=== PATIENT | female | born 1995 | race Caucasian/White ===

== ENCOUNTER 2018-10-21 21:17 | Emergency (ER) | payer OTHER ==
[2018-10-21 21:47] VITALS: BP 118/72; PULSE 96; TEMP 98.2; BMI 27.4
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
[2018-10-21 22:56] LABS: BASO % 0.4 % (0-2.0); EOS % 0.4 % (0-4.5); HEMATOCRIT 35.7 % (32.4-45.2); HEMOGLOBIN 12.6 GM/dL (10.7-15.3); LYMPH % 22.1 % (8-40); MCH 31.7 pg (25.7-33.7); MCHC 35.2 g/dl (32.0-36.0); MEAN CELL VOLUME 90.1 fl (80-96); MEAN PLT VOLUME 9.2 fl (7.5-11.1); MONO % 5.2 % (3.8-10.2); NEUT % 71.9 % (42.8-82.8); PLATELET COUNT 266 K/MM3 (134-434); RBC 3.97 M/mm3 (3.60-5.2); RDW 13.3 % (11.6-15.6); WHITE BLOOD COUNT 9.6 K/mm3 (4.0-10.0)
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
[2018-10-21 23:08] LABS: URINE APPEARANCE CLEAR; URINE BILIRUBIN NEGATIVE (<2.0 mg/dL); URINE COLOR LTYELLOW; URINE GLUCOSE (UA) NEGATIVE (NEGATIVE); URINE KETONE TRACE (NEGATIVE); URINE LEUK ESTERASE TRACE (NEGATIVE); URINE NITRITE NEGATIVE (NEGATIVE); URINE PROTEIN NEGATIVE (NEGATIVE); URINE UROBILINOGEN NEGATIVE mg/dL (0.2-1.0)
[2018-10-21 23:11] LABS: EPI CELLS RARE /HPF (FEW); URINE MUCUS RARE
[2018-10-21 23:43] LABS: ALK PHOS 68 U/L (45-117); ANION GAP 10 MMOL/L (8-16); BILIRUBIN,TOTAL 0.3 mg/dL (0.2-1); BLOOD UREA NITROGEN 10 mg/dL (7-18); CALCIUM 8.5 mg/dL (8.5-10.1); CHLORIDE 105 mmol/L (98-107); CO2 21 mmol/L (21-32); CREATININE 0.7 mg/dL (0.55-1.3); GLUCOSE,RANDOM 88 mg/dL (74-106); POTASSIUM 3.7 mmol/L (3.5-5.1); SGOT/AST 10 U/L (15-37); SGPT/ALT 16 U/L (13-61); SODIUM 136 mmol/L (136-145); TOT PROT 7.8 g/dl (6.4-8.2)
== END 2018-10-22 02:07 | disposition home or self-care (01) ==
LOC: JER 21:17
DX: O26.891 Other specified pregnancy related conditions, first trimester (principal); R10.30 Lower abdominal pain, unspecified; Z3A.01 Less than 8 weeks gestation of pregnancy; V44.6XXA Car passenger injured in collision with heavy transport vehicle or bus in traffic accident, initial encounter; Y92.488 Other paved roadways as the place of occurrence of the external cause; Y93.89 Activity, other specified; Y99.8 Other external cause status
CPT/HCPCS: 36415; 76830-TC; 80053; 81003; 81015; 84702; 85025; 87086; 99282-25

== ENCOUNTER 2019-06-19 07:36 | Inpatient (IN) | payer OTHER ==
[2019-06-19] MEDS ORDERED: ELECTROLYTE-148 SOLN 500 ML IV ONE (08:03)
[2019-06-19] MEDS ORDERED: CITRIC ACID/SODIUM CITRATE 30 ML UNIT-DOSE CUP PO ONE (08:03)
--- NOTE | 2019-06-19 08:17 | HP ---
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: Alzheimer's, CVA, Dementia, Migraine, Multiple Sclerosis, Peripheral Neuropathy, Parkinson's, Seizure, Syncope, TIA, Vertigo, Other Cardiovascular: No: AFIB, Aneurysm, Aortic Insufficiency, Aortic Stenosis, CAD, CHF, Deep Vein Thrombosis, HTN, Hyperlipdemia, NV, Mitral Insufficiency, Mitral Stenosis, Murmur, Pulmonary Hypertension, Other Pulmonary: No: Asthma, Bronchitis, Cancer, COPD, O2 Dependent, Pneumonia, Previously Intubated, Pulmonary Embolus, Pulmonary Fibrosis, Sleep Apnea, Other Gastrointestinal: No: Ascites, Cancer, Constipation, Crohn's Disease, Diverticulitis, Diverticulosis, Esophageal Varices, Gastritis, GERD, GI Bleed, Hemorrhoids, Hiatal Hernia, Inflamatory Bowel Disease, Irritable Bowel Disease, Pancreatitis, Peptic Ulcer Disease, Ulcerative Colitis, Other Hepatobiliary: No: Cirrhosis, Cholelithiasis, Cholecystitis, Choledocholithiasis , Hepatitis A, Hepatitis B, Hepatitis C, Other Renal/: No: Renal Failure, Renal Inusuff, BPH, Cancer, Hematuria, Hemodialysis , Neurogenic Bladder, Renal Calculi, UTI, Other Reproductive: No: Ectopic , Endometriosis, Fibroids, PID, Polycystic Ovary Syndrome, Postmenopausal, Other ...: 2 ...Para: 1 ...Term: 1 ...: 0 ...Spon : 0 ...Induced : 0 Heme/Onc: No: Anemia, B12 Deficiency, Bleeding Disorder, Cancer, Current Chemotherapy, Current Radiation Therapy, Hemochromatosis, Hypercoaguable State, Myeloproliferative Synd, Sickle Cell Disease, Sickle Cell Trait, Thrombocytopenia, Other Infectious Disease: No: AIDS, C-Diff, Herpes Zoster, HIV, MRSA, STD's, Tuberculosis, VREF, Other Psych: No: Addictions, Anxiety, Bipolar, Depression, Panic, Psychosis, Schizophrenia, Other Musculoskeletal: No: Bursitis, Chronic low back pain, Hemiparesis, Hemiplegia, Osteoarthritis, Paraplegia, Other Rheumatology: No: Fibromyalgia, Gout, Lupus, Rheumatoid Arthritis, Sarcoidosis, Vasculitis, Other ENT: No: Allergic Rhinitis, Sinusitis, Other Endocrine: No: St. Johns's Disease, Sage's Disease, Diabetes Insipidus, Diabetes Mellitus, Hyperparathyroidism, Hyperthyroidism, Hypothyroidism, Osteopenia, SIADH, Other Dermatology: No: Basal Cell, Cellulitis, Eczema, Melanoma, Psoriasis, Squamous Cell, Other - Past Surgical History Past Surgical History: Yes: Hx Myomectomy: No Hx Transabdominal Cerclage: No - Smoking History Smoking history: Never smoked - Alcohol/Substance Use Hx Alcohol Use: No History of Substance Use: reports: None Home Medications - Allergies Allergies/Adverse Reactions: Allergies Allergy/AdvReac Type Severity Reaction Status Date / Time No Known Allergies Allergy Verified 05/14/19 05:42 - Home Medications Home Medications: Ambulatory Orders Vitamins (Sjr) - 1 tab PO DAILY 05/14/19 Family Disease History - Family Disease History Family History: Unremarkable Review of Systems Unable to obtain ROS, reason: pain and leaking of fluid - Review of Systems Constitutional: reports: No Symptoms Eyes: reports: No Symptoms HENT: reports: No Symptoms Neck: reports: No Symptoms Cardiovascular: reports: No Symptoms Respiratory: reports: No Symptoms Gastrointestinal: reports: No Symptoms Genitourinary: reports: No Symptoms Breasts: reports: No Symptoms Reported Musculoskeletal: reports: No Symptoms Integumentary: reports: No Symptoms Neurological: reports: No Symptoms Endocrine: reports: No Symptoms Hematology/Lymphatic: reports: No Symptoms Psychiatric: reports: No Symptoms Physical Exam - Maternity Constitutional: Yes: Well Nourished Eyes: Yes: WNL HENT: Yes: Atraumatic Neck: Yes: WNL Cardiovascular: Yes: Regular Rate and Rhythm Breast(s): Yes: WNL - Abdominal Exam/OB Number of Fetuses: Single Contractions: Yes Regularity: Regular Intensity: Mod/Strong Monitor Mode: External Category: I Accelerations: Uniform Decelerations: None - Vaginal Exam/OB Vaginal Bleediing: No Speculum Exam: No Dilatation (cm): 3 Effacement (%): 80 Amniotic Membrane Status: Ruptured Nitrazine Test: Positive Station: -3 - Physical Exam Musculoskeletal: Yes: WNL Extremities: Yes: WNL Edema: Yes Edema: LLE: Trace, RLE: Trace Integumentary: Yes: WNL ...Motor Strength: WNL Psychiatric: Yes: Alert, Oriented - Labs Lab Results: labs reviewed Hemorrhage Risk Assessment - Risk Factors Medium Risk Factors: No: Prior , uterine surgery,or multiple laparotomies, Multiple gestation, Greater than 4 previous births, History of previous hemorrhage, Large myomas, EFW greater than 4000g, Obesity ( BMI >40), Hematocrit < 30% & other, None High Risk Factors: No: Placenta previa, low lying, Suspected accreta/ percreta, Active bleeding on admission, Platelets less than 70,000, Known coagulopathy, None Imaging - Results Ultrasound: Image Reviewed Problem List - Problems (1) Code(s): Z34.90 - ENCNTR FOR SUPRVSN OF NORMAL , UNSP, UNSP TRIMESTER Qualifiers: Weeks of gestation: 38 weeks Qualified Code(s): Z3A.38 - 38 weeks gestation of Assessment/Plan 23 y/o @ 38.9wks, presenting in active labor and SROM, scheduled CS for tomorrow, FHT is reassuring and stable maternal condition. Patient counseled appropriately regarding risks, complications and alternatives of the procedure. Informed consent obtained in patient's apache language. -Proceed with urgent case
[2019-06-19 08:30] VITALS: BMI 33.6
[2019-06-19] MEDS ORDERED: morphine SULFATE/PF 0.5 MG/ML (2cc Syringe - QUVA) ONE (08:44)
[2019-06-19] MEDS ORDERED: ceFAZolin SODIUM 1 GM VIAL ONE (08:59)
[2019-06-19] MEDS ORDERED: PHENYLEPHRINE HCL 10 MG/1 ML SINGLE DOSE VIAL ONE (09:00)
[2019-06-19] MEDS ORDERED: OXYTOCIN 10 UNITS/ML VIAL ONE (09:13)
--- NOTE | 2019-06-19 10:03 | SURG ---
Surgery Campground Attendant Note Campground Attendant: Anthony Herring PA-C Date of Service: 06/19/19 Diagnosis: Repeat Cesarian section Procedure: Cesarian section I was present for the entirety of the operative procedure. For further detail, please refer to operative report. Visit type - Case Type Case Type: Scheduled - Emergency Emergency Visit: No - New patient This patient is new to me today: Yes Date on this admission: 06/19/19 - Critical Care Critical Care patient: No
[2019-06-19] MEDS ORDERED: ONDANSETRON 4 MG/2 ML VIAL IVPUSH PRN (10:08)
[2019-06-19] MEDS ORDERED: OXYTOCIN 20 UNITS in 0.9% NS 20 UNIT/1,000 ML INFUS.BAG IV ONE (10:08)
[2019-06-19] MEDS: OXYTOCIN 20 UNITS in 0.9% NS 20 UNIT/1,000 ML INFUS.BAG IV SCH ×2 (10:15→19:56)
[2019-06-19] MEDS ORDERED: METHYLERGONOVINE MALEATE 0.2 MG/1 ML AMP IM PRN (10:16)
--- NOTE | 2019-06-19 11:22 | OP ---
Operative Note - Note: Operative Date: 06/19/19 (Dic#[id number]) Pre-Operative Diagnosis: Previous C/S in active labor Operation: RLTCS Implants: none Post-Operative Diagnosis: Same as Pre-op Surgeon: Bay Gore Anesthesia: Spinal Estimated Blood Loss (mls): 700 Drains, Volume Out (mls): 500 Fluid Volume Replaced (mls): 1,200 Operative Report Dictated: Yes
--- NOTE | 2019-06-19 13:30 | OP ---
DATE OF OPERATION: 06/19/2019 PREOPERATIVE DIAGNOSES: A 23-year-old, 2, para 1, at 38-6/7 weeks of gestation, prior section, in active labor, spontaneous rupture of membranes. POSTOPERATIVE DIAGNOSES: A 23-year-old, 2, para 1, at 38-6/7 weeks of gestation, prior section, in active labor, spontaneous rupture of membranes. PROCEDURE: Repeat low-transverse section. SURGEON: Irina Deluna MD PRODUCTION MECHANIC: SEKOU Robbins ANESTHESIA: Spinal. ESTIMATED BLOOD LOSS: 700. IV FLUIDS: 200 mL of crystalloid. URINE: 500 mL of clear urine. COMPLICATIONS: Cervical laceration. FINDINGS: Normal anterior abdominal anatomy, rectus muscles were fused to each other and the overlying fascia. The lower uterine segment was noted with a small window on the right side. Bladder was adherent to the lower uterine segment. Infant in clear amniotic fluid, cephalic presentation, HUGH, no nuchal cord. Uterine fundus and bilateral tubes and ovaries were consistent with normal anatomy. PROCEDURE: The patient was taken to the operating room, where anesthesia was found to be adequate. She was prepped and draped in a normal sterile fashion. Bernstein catheter was previously placed atraumatically. Appropriate timeout took place. Pfannenstiel skin incision was made with a scalpel following prior section scar. The fascia was incised. The incision was carried to the underlying fascia through a moderate amount of subcutaneous tissue. The fascia was incised in the midline and incision extended laterally with sharp dissection. The underlying rectus muscles were dissected off sharply. The rectus muscles were elevated at the midline and sharply superiorly. Entry to the peritoneal cavity revealed no visceral adhesions to the point of entry. The incision was extended superiorly and inferiorly with blunt and sharp dissection. Bladder blade was placed and the findings as previously mentioned. Lower uterine segment transverse incision was made with the scalpel and extended laterally with blunt dissection. Amniotomy revealed clear fluid. The was wedged deep in the pelvis and was elevated through the surgical incision via surgeon's cell tender. The was elevated through the surgical with mild fundal pressure without difficulty. Umbilical cord was clamped after delay. Infant was suctioned with suction bulb through the mouth and nostrils. The was handed off to the awaiting NICU staff. A segment for lab work obtained from the cord. The infant cried vigorously while being handed off to the NICU staff. Placenta was delivered manually and intact. The uterus was exteriorized through the surgical incision and the intrauterine cavity was cleared of all clots and debris. The lower uterine segment was reapproximated with 1-0 Vicryl running locked sutures. Excellent structural reapproximation achieved. This was performed as the cervical laceration on the right was secured with Allis's and the apex identified. Excellent hemostasis was noted. The uterus was internalized to the pelvic cavity and gutters were cleared of all clots and debris. Secondary inspection of the hysterotomy revealed excellent hemostasis again. Gutters were cleared of all clots and debris. Bladder dome and rectus muscle-fascial interface were examined and noted to be dry without evidence of trauma. Fascial incision was reapproximated with 0 Vicryl running nonlocked sutures. Excellent structural reapproximation achieved and confirmed by the use of palpation by the surgeon. Subcutaneous tissues were copiously irrigated and bleeders controlled with Bovie cautery. Subcutaneous tissues were reapproximated with 3-0 plain gut suture. Skin incision reapproximation with surgical slava. The patient tolerated the procedure well and was going to the recovery room in stable condition. Instrument and pack count was reported as correct x2. The patient will continue antibiotics for postoperative prophylaxis for 24 hours. IRINA DELUNA MD [id number] MTDD
[2019-06-19] MEDS: IBUPROFEN 800 MG/8 ML IJ IVPB PRN ×2 (14:42→22:48)
[2019-06-19 17:13] LABS: HEMATOCRIT 30.1 % (32.4-45.2); LYMPH % 12.3 % (8-40); MCH 29.1 pg (25.7-33.7); MCHC 33.2 g/dl (32.0-36.0); MEAN CELL VOLUME 87.6 fl (80-96); MEAN PLT VOLUME 10.3 fl (7.5-11.1); NEUT % 82.7 % (42.8-82.8); PLATELET COUNT 227 K/MM3 (134-434); RBC 3.44 M/mm3 (3.60-5.2); RDW 14.9 % (11.6-15.6); WHITE BLOOD COUNT 10.7 K/mm3 (4.0-10.0)
[2019-06-19] MEDS: CEFAZOLIN 1 GM/D5W 1 GM/50 ML BAG IVPB SCH (17:35)
[2019-06-20] MEDS: CEFAZOLIN 1 GM/D5W 1 GM/50 ML BAG IVPB SCH ×2 (02:26→10:19)
[2019-06-20] MEDS: OXYTOCIN 20 UNITS in 0.9% NS 20 UNIT/1,000 ML INFUS.BAG IV SCH ×2 (05:16→19:58)
[2019-06-20] MEDS: IBUPROFEN 600 MG TABLET (FP) PO PRN ×3 (05:45→18:42)
[2019-06-20] MEDS: SIMETHICONE 80 MG TAB.CHEW (FP) PO PRN ×3 (05:45→18:44)
--- NOTE | 2019-06-20 06:23 | PN ---
Post Progress Note - Subjective Subjective: pod 1 no issues Post Day: 1 Type of Delivery: Repeat C/S Vital Signs: Vital Signs Temperature 98.6 F 06/20/19 02:00 Pulse Rate 95 H 06/20/19 02:00 Respiratory Rate 18 06/20/19 04:00 Blood Pressure 97/75 06/20/19 02:00 O2 Sat by Pulse Oximetry (%) 100 06/19/19 10:50 Breast Exam: Yes: Soft Uterus: Yes: Fundus Firm Incision: Yes: Dressing dry and intact Abdomen/GI: Yes: Abdomen soft Lochia: Yes: Rubra Lochia, amount: Small Extremities: Yes: Calves non-tender Perineum: Yes: Intact Activity: Ambulating - Labs Labs: CBC WBC 10.7 K/mm3 (4.0-10.0) H 06/19/19 16:30 RBC 3.44 M/mm3 (3.60-5.2) L 06/19/19 16:30 Hgb 10.0 GM/dL (10.7-15.3) L 06/19/19 16:30 Hct 30.1 % (32.4-45.2) L 06/19/19 16:30 MCV 87.6 fl (80-96) 06/19/19 16:30 MCH 29.1 pg (25.7-33.7) 06/19/19 16:30 MCHC 33.2 g/dl (32.0-36.0) 06/19/19 16:30 RDW 14.9 % (11.6-15.6) 06/19/19 16:30 Plt Count 227 K/MM3 (134-434) 06/19/19 16:30 MPV 10.3 fl (7.5-11.1) 06/19/19 16:30 Absolute Neuts (auto) 8.8 K/mm3 (1.5-8.0) H 06/19/19 16:30 Neutrophils % 82.7 % (42.8-82.8) 06/19/19 16:30 Lymphocytes % 12.3 % (8-40) D 06/19/19 16:30 Monocytes % 5.0 % (3.8-10.2) 06/19/19 16:30 Eosinophils % 0.0 % (0-4.5) D 06/19/19 16:30 Basophils % 0.0 % (0-2.0) 06/19/19 16:30 Nucleated RBC % 0 % (0-0) 06/19/19 16:30 Assessment/Plan as above pod 1 care oob reg diet
[2019-06-20] MEDS: oxyCODONE HCL 5 MG TABLET PO PRN ×3 (08:11→18:42)
[2019-06-20 08:23] LABS: BASO % 0.1 % (0-2.0); EOS % 0.2 % (0-4.5); HEMATOCRIT 30.1 % (32.4-45.2); HEMOGLOBIN 9.8 GM/dL (10.7-15.3); LYMPH % 10.1 % (8-40); MCH 28.6 pg (25.7-33.7); MCHC 32.6 g/dl (32.0-36.0); MEAN CELL VOLUME 87.8 fl (80-96); MEAN PLT VOLUME 10.1 fl (7.5-11.1); MONO % 5.3 % (3.8-10.2); NEUT % 84.3 % (42.8-82.8); PLATELET COUNT 220 K/MM3 (134-434); RBC 3.43 M/mm3 (3.60-5.2); RDW 14.9 % (11.6-15.6); WHITE BLOOD COUNT 11.2 K/mm3 (4.0-10.0)
[2019-06-20] MEDS ORDERED: BISACODYL 10 MG SUPP.RECT RC PRN (10:17)
[2019-06-21] MEDS: oxyCODONE HCL 5 MG TABLET PO PRN ×3 (02:20→15:09)
[2019-06-21] MEDS: IBUPROFEN 600 MG TABLET (FP) PO PRN ×3 (02:20→15:08)
[2019-06-21] MEDS: SIMETHICONE 80 MG TAB.CHEW (FP) PO PRN ×3 (02:20→15:09)
--- NOTE | 2019-06-21 10:39 | PN ---
Post Progress Note - Subjective Subjective: c/o pain scale 4-5/10 voiding without difficulty bm done Post Day: 2 Type of Delivery: Repeat C/S Vital Signs: Vital Signs Temperature 98.9 F 06/21/19 10:00 Pulse Rate 94 H 06/21/19 10:00 Respiratory Rate 17 06/21/19 10:00 Blood Pressure 105/68 06/21/19 10:00 O2 Sat by Pulse Oximetry (%) 100 06/19/19 10:50 Breast Exam: Yes: Soft. No: Engorged Uterus: Yes: Fundus Firm, Fundus below umbilicus Incision: Yes: [place] intact. No: Redness, Oozing Abdomen/GI: Yes: Abdomen soft, Passing flatus, Tolerating PO (reg diet ). No: Abdominal Distention, Tender Lochia, amount: Moderate Extremities: Yes: Calves non-tender Perineum: Yes: Intact Activity: Ambulating - Labs Labs: CBC WBC 11.2 K/mm3 (4.0-10.0) H 06/20/19 07:26 RBC 3.43 M/mm3 (3.60-5.2) L 06/20/19 07:26 Hgb 9.8 GM/dL (10.7-15.3) L 06/20/19 07:26 Hct 30.1 % (32.4-45.2) L 06/20/19 07:26 MCV 87.8 fl (80-96) 06/20/19 07:26 MCH 28.6 pg (25.7-33.7) 06/20/19 07:26 MCHC 32.6 g/dl (32.0-36.0) 06/20/19 07:26 RDW 14.9 % (11.6-15.6) 06/20/19 07:26 Plt Count 220 K/MM3 (134-434) 06/20/19 07:26 MPV 10.1 fl (7.5-11.1) 06/20/19 07:26 Absolute Neuts (auto) 9.4 K/mm3 (1.5-8.0) H 06/20/19 07:26 Neutrophils % 84.3 % (42.8-82.8) H 06/20/19 07:26 Lymphocytes % 10.1 % (8-40) 06/20/19 07:26 Monocytes % 5.3 % (3.8-10.2) 06/20/19 07:26 Eosinophils % 0.2 % (0-4.5) D 06/20/19 07:26 Basophils % 0.1 % (0-2.0) D 06/20/19 07:26 Nucleated RBC % 0 % (0-0) 06/20/19 07:26 Problem List - Problems (1) Status post section routine follow-up Code(s): Z39.2 - ENCOUNTER FOR ROUTINE FOLLOW-UP; Z98.891 - HISTORY OF UTERINE SCAR FROM PREVIOUS SURGERY Assessment/Plan stable Plan ct po care encourage po fluids , ambulation, deep breathing
[2019-06-22] MEDS: IBUPROFEN 600 MG TABLET (FP) PO PRN ×2 (01:46→12:01)
[2019-06-22] MEDS: SIMETHICONE 80 MG TAB.CHEW (FP) PO PRN ×2 (01:46→12:01)
--- NOTE | 2019-06-22 08:01 | PN ---
Progress Note (short form) - Note Progress Note: pod 2 s/p c/s , doing well, ambulating, voidsok CBC, BMP 06/20/19 07:26 Last Vital Signs Temp Pulse Resp BP Pulse Ox 98.4 F 98 H 20 116/62 100 06/21/19 21:37 06/21/19 21:37 06/21/19 21:37 06/21/19 21:37 06/19/19 10:50 abdomen soft, no distension, no cva incision dry, clean no calf tenderness no excess vaginal bleeding plan ambulate , cbc pain management
--- NOTE | 2019-06-22 08:36 | DS ---
Physical Exam-HOME AID Vital Signs: Vital Signs Temperature 98.4 F 06/21/19 21:37 Pulse Rate 98 H 06/21/19 21:37 Respiratory Rate 20 06/21/19 21:37 Blood Pressure 116/62 06/21/19 21:37 O2 Sat by Pulse Oximetry (%) 100 06/19/19 10:50 Constitutional: Yes: Well Nourished, No Distress, Calm Eyes: Yes: WNL, Conjunctiva Clear, EOM Intact HENT: Yes: WNL, Atraumatic, Normocephalic Neck: Yes: WNL, Supple, Trachea Midline Cardiovascular: Yes: WNL, Regular Rate and Rhythm Respiratory: Yes: WNL, Regular, CTA Bilaterally Gastrointestinal: Yes: WNL ...Rectal Exam: Yes: WNL Renal/: Yes: WNL ....Post : Yes: Uterus firm, Uterus non-tender, Slight lochia rubra Breast(s): Yes: WNL Musculoskeletal: Yes: WNL Extremities: Yes: WNL Edema: Yes Edema: LLE: Trace, RLE: Trace Integumentary: Yes: WNL Wound/Incision: Yes: Clean/Dry, Well Approximated, Sutures Intact Neurological: Yes: WNL, Alert, Oriented ...Motor Strength: WNL Psychiatric: Yes: WNL, Alert, Oriented Delivery - Delivery Section: Repeat, Low Flap Transverse Type of Anesthesia: Spinal Episiotomy/Laceration: None EBL (cc): 700 Delivery, Single - Stages of Labor Date 1st Stage Initiatied: 06/19/19 Time 1st Stage Initiated: 06:30 Date of Delivery: 06/19/19 Time of Delivery: 09:16 Time Placenta Delivered: 09:17 Placenta: Yes: Expressed - 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
[2019-06-22 08:51] LABS: BASO % 0.2 % (0-2.0); EOS % 1.4 % (0-4.5); HEMATOCRIT 29.2 % (32.4-45.2); HEMOGLOBIN 9.8 GM/dL (10.7-15.3); LYMPH % 15.4 % (8-40); MCH 29.2 pg (25.7-33.7); MCHC 33.4 g/dl (32.0-36.0); MEAN CELL VOLUME 87.2 fl (80-96); MEAN PLT VOLUME 9.8 fl (7.5-11.1); MONO % 4.4 % (3.8-10.2); NEUT % 78.6 % (42.8-82.8); PLATELET COUNT 245 K/MM3 (134-434); RBC 3.35 M/mm3 (3.60-5.2); RDW 14.9 % (11.6-15.6); WHITE BLOOD COUNT 8.8 K/mm3 (4.0-10.0)
[2019-06-22 14:35] VITALS: BP 107/67; PULSE 106; TEMP 98.7
--- NOTE | 2019-06-27 17:04 | PATH ---
Surgical Pathology Report Patient Name: RITESH JAIMES [facility]. Rec. 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 TRIVASCULAR CORD. MEMBRANES WITH NO DIAGNOSTIC ABNORMALITIES. Electronically Signed Michelle Roblero M.D. Gross Description The specimen is received fresh labeled placenta and is a 372 gram, 16.0 x 14.5 x 3.1 cm. placenta with attached membranes and umbilical cord. The attached membranes are negrete, translucent with focal opacities and insert marginally. The umbilical cord measures 20 cm. in length and averages 1.4 cm. in diameter. The cord inserts eccentrically, 4 cm. to the nearest margin. No true knots or strictures are identified. Cut surface of the umbilical cord reveals 3 vessels. The surface is dowell-blue with minimal fibrin deposition and appropriate caliber vessels. The maternal surface is red-brown with focal defects. Sectioning reveals red-brown, spongy parenchyma. No lesions are identified. Dice Spotter sections are submitted in three cassettes as follows: 1- membrane rolls and umbilical cord; 2-3- full thickness sections of placenta. 06/25/2019 [facility]06/25/2019
== END 2019-06-22 12:45 | disposition home or self-care (01) | DRG 540 ==
LOC: JLDR 07:36 → J3W 11:33
PROVIDERS: ADMIT Student in an Organized Health Care Education/Training Program; ATTEND Student in an Organized Health Care Education/Training Program
PROC: 10D00Z1 Extraction of Products of Conception, Low, Open Approach (ICD-10-PCS; principal; 2019-06-19)
DX: O34.219 Maternal care for unspecified type scar from previous cesarean delivery (principal); Z3A.38 38 weeks gestation of pregnancy; Z37.0 Single live birth
CPT/HCPCS: 36415; 85025; 88307-TC

== ENCOUNTER 2019-08-15 15:07 | Emergency (ER) | payer OTHER ==
[2019-08-15 15:13] VITALS: BP 122/77; PULSE 78; TEMP 98.5
[2019-08-15] MEDS ORDERED: SODIUM CHLORIDE 1,000 ML IV STA (17:13)
[2019-08-15] MEDS ORDERED: ACETAMINOPHEN 1000 MG/100 ML VIAL (NON FORMULARY) IVPB ONE (17:13)
--- NOTE | 2019-08-15 17:15 | PDOC ---
History of Present Illness - General Chief Complaint: Pain, Acute Stated Complaint: FEVER/ ABD PAIN/ R/O UTI Time Seen by Provider: 08/15/19 16:46 History Source: Patient, Old Records Exam Limitations: Language Barrier ([employer] # [id number]) - History of Present Illness Travel History: No Initial Comments: 08/15/19 17:09 HISTORY OF PRESENT ILLNESS: 23-year-old woman who is 1 month of presents emergency Department with right flank pain and hematuria for the past 2 days. Patient reports some dysuria as well. Patient states she's had kidney stones in the past reports the pain feels similar to her previous kidney stones. Patient is unable to describe the pain but states that it's "really bad " and on the right flank. Patient denies fevers or chills. Patient is currently breast-feeding. Patient does not have a urologist and her primary doctor is Dr. Teodoro Sullivan. No recent travel or sick contacts. PAST MEDICAL HISTORY: see HPI SURGICAL HISTORY: 07/09 ALLERGIES: No known drug allergies REVIEW OF SYSTEMS General/Constitutional: Denies fever or chills. Denies weakness, weight change. HEENT: Denies change in vision. Denies ear pain or discharge. Denies sore throat. Cardiovascular: Denies chest pain or shortness of breath. Respiratory: Denies cough, wheezing, or hemoptysis. Gastrointestinal: Denies nausea, vomiting, diarrhea or constipation. Denies rectal bleeding. Genitourinary: see HPI Musculoskeletal: Denies joint or muscle swelling or pain. Denies neck or back pain. Skin and breasts: Denies rash or easy bruising. Neurologic: Denies headache, vertigo, loss of consciousness, or loss of sensation. Psychiatric: Denies depression or anxiety. Endocrine: Denies increased thirst. Denies abnormal weight change. Hematologic/Lymphatic: Denies anemia, easy bleeding, or history of blood clots. Allergic/Immunologic: Denies hives or skin allergy. Denies latex allergy. PHYSICAL EXAM General Appearance: Well-appearing, appropriately dressed. No apparent distress , no intoxication. Respiratory/Chest: Lungs CTAB. No shortness of breath, chest tenderness, respiratory distress, accessory muscle use. No crackles, rales, rhonchi, stridor , wheezing, dullness Cardiovascular: RRR. S1, S2. No JVD, murmur, bradycardia, tachycardia. Gastrointestinal/Abdominal: Normal bowel sounds. Abdomen soft, non-distended. Mild right sided tenderness. No rebound tenderness. Negative psoas, obturator signs. No organomegaly, pulsatile mass, guarding, hernia, hepatomegaly, splenomegaly. Lymphatic: No adenopathy, tenderness. Musculoskeletal/Extremities: Normal inspection. FROM of all extremities, normal capillary refill. Pelvis Stable. Right CVA tenderness. No tenderness to extremities, pedal edema, swelling, erythema or deformity. 08/16/19 01:44 Past History - Past Medical History Allergies/Adverse Reactions: Allergies Allergy/AdvReac Type Severity Reaction Status Date / Time No Known Allergies Allergy Verified 08/15/19 15:13 Home Medications: Ambulatory Orders Vitamins (Sjr) - 1 tab PO DAILY 05/14/19 Ibuprofen [Motrin -] 600 mg PO TID #90 tablet 06/22/19 Asthma: No Cancer: No Cardiac Disorders: No COPD: No Diabetes: No HTN: No Kidney Stones: Yes Seizures: No Thyroid Disease: No - Psycho Social/Smoking Cessation Hx Smoking History: Never smoked Have you smoked in the past 12 months: No Hx Alcohol Use: No Drug/Substance Use Hx: No Hx Substance Use Treatment: No *Physical Exam - Vital Signs Last Vital Signs Temp Pulse Resp BP Pulse Ox 98.5 F 78 16 122/77 99 08/15/19 15:11 08/15/19 15:11 08/15/19 15:11 08/15/19 15:11 08/15/19 15:11 ED Treatment Course - LABORATORY CBC & Chemistry Diagram: 08/15/19 18:06 08/15/19 18:06 Medical Decision Making - Medical Decision Making Medical Decision Makin08/15/2019 1714 p.m. A/P: 23-year-old woman with right flank pain, hematuria and dysuria for 1 day Differential diagnosis includes but is not limited to-renal calculi, pyelonephritis, infected stone Urine including culture and CBC, CMP Normal saline 1 L IV bolus This patient is breast-feeding I will give the patient Tylenol [address] of the abdomen and pelvis Reassess 08/15/19 20:46 CT scan is read by Dr. Galvez: Obstructing stone at the right UVJ measuring 5 x 4 x 6 mm in AP, transverse and craniocaudal dimensions resulting in moderate right renal hydronephrosis with enlargement of the right kidney relative to the left and mild stranding of the perinephric fat mainly around the inferior pole. A couple of tiny nonobstructing right renal stones the largest measuring 4 mm. Laboratory Tests 08/15/19 08/15/19 08/15/19 18:06 18:06 18:06 WBC 7.6 Hgb 11.0 Hct 34.3 D Plt Count 257 Sodium 143 Potassium 4.3 Chloride 109 H Carbon Dioxide 26 BUN 14.8 Creatinine 1.2 Est GFR (CKD-EPI)NonAf 64.55 Random Glucose 88 Calcium 8.7 Total Bilirubin 0.2 AST 9 L ALT 16 Alkaline Phosphatase 87 Total Protein 7.2 Albumin 3.5 Serum , Qual Negative Patient's creatinine is currently 1.2 was 0.7 2 months prior. As result is still within normal limits I will withhold admission at this time. Patient is pending urine studies to evaluate for potential infection. 08/15/19 21:33 Urinalysis is not indicative of infection. I will discharge the patient home to follow-up with urology. Faisal at the pharmacy here at [facility] has been contacted to discuss Flomax and breast- feeding mothers. she states it is safe to give Flomax to a breast-feeding mother. I will give the patient's a dose of Flomax here prior to discharge. The process of extracting breastmilk and discarding has been discussed with the mother who is verbalizes understanding of discharge instructions. I discussed the physical exam findings, ancillary test results and final diagnoses with the patient. I answered all of the patient's questions. The patient was satisfied with the care received and felt comfortable with the discharge plan and treatment plan. The patient will call their primary care physician within 24 hours to arrange follow-up and will return to the Emergency Department with any new, persistent or worsening symptoms. Portions of this note have been documented using voice recognition software. As a result, errors may occur in the hygiene assistant process. Effort has been made to correct all grammatical and hygiene assistant error, but some may have been missed. 08/15/19 21:34 08/15/19 21:51 Friend from the pharmacy called to report that Flomax may be excreted in the breast milk and cause hypotension in the incident. Breast extraction and discarding has been discussed with the patient is verbalized understanding of discharge instructions. Discharge instructions have been provided using [employer] community relations specialist #[id number]. Discharge - Discharge Information Problems reviewed: Yes Clinical Impression/Diagnosis: Renal calculus, right Condition: Fair Disposition: HOME - Admission No - Follow up/Referral Referrals: Sid Temple MD [Staff Physician] - - Patient Discharge Instructions Additional Instructions: You have a 4 x 5 x 6 mm obstructing stone in your right ureter. You've been given a dose of Flomax here which will help facilitate removal of the stone. It is important that you pump her breast milk and discard it for the next 4-5 days. It is important that you follow up with the urologist for continued evaluation and further interventions as needed. You been provided with the urologist today. Please call for reevaluation. Take Tylenol as needed for pain. Return to the emergency department for any new or worsening symptoms. Thank you very much for choosing us to provide your emergent health care needs. Tiene un clculo obstructor de 4 x 5 x 6 mm en paulino urter derecho. Aqu le hubbard dado pattie dosis de Flomax que ayudar a facilitar la extraccin del clculo. Es importante que extraiga paulino leche materna y la deseche yunior los prximos 4- 5 zacarias. Es importante que edgardo un seguimiento con el urlogo para pattie evaluacin continua y otras intervenciones segn sea necesario. Se le bolivar proporcionado el urlogo hoy. Por favor llame para reevaluacin. [place] Tylenol segn sea necesario para el dolor. Regrese al departamento de emergencias por cualquier sntoma nuevo o que empeore. Muchas marion por elegirnos para satisfacer isaias necesidades de atencin mdica de emergencia. - Post Discharge Activity
[2019-08-15] MEDS ORDERED: ACETAMINOPHEN INJECTION 100 ML IVPB ONE (17:52)
[2019-08-15 18:30] LABS: BASO % 0.5 % (0-2.0); EOS % 1.3 % (0-4.5); HEMATOCRIT 34.3 % (32.4-45.2); LYMPH % 27.5 % (8-40); MCH 28.3 pg (25.7-33.7); MEAN CELL VOLUME 88.3 fl (80-96); MEAN PLT VOLUME 9.7 fl (7.5-11.1); MONO % 6.6 % (3.8-10.2); NEUT % 64.1 % (42.8-82.8); PLATELET COUNT 257 K/MM3 (134-434); RBC 3.89 M/mm3 (3.60-5.2); RDW 15.3 % (11.6-15.6); WHITE BLOOD COUNT 7.6 K/mm3 (4.0-10.0)
[2019-08-15 18:52] LABS: ALBUMIN 3.5 g/dl (3.4-5.0); BILIRUBIN,TOTAL 0.2 mg/dL (0.2-1); BLOOD UREA NITROGEN 14.8 mg/dL (7-18); CALCIUM 8.7 mg/dL (8.5-10.1); CREATININE 1.2 mg/dL (0.55-1.3); POTASSIUM 4.3 mmol/L (3.5-5.1); TOT PROT 7.2 g/dl (6.4-8.2)
[2019-08-15 21:18] LABS: EPI CELLS 3.7 /HPF (0-5/HPF); HYALINE CASTS 5 /lpf (0-8); PH,URINE 5.5 (5.0-8.0); URINE APPEARANCE TURBID; URINE BACTERIA 2.2 /hpf (NEGATIVE); URINE BILIRUBIN NEGATIVE (NEGATIVE); URINE COLOR RED; URINE GLUCOSE (UA) NEGATIVE (NEGATIVE); URINE KETONE NEGATIVE (NEGATIVE); URINE LEUK ESTERASE TRACE (NEGATIVE); URINE NITRITE NEGATIVE (NEGATIVE); URINE PROTEIN 2+ (NEGATIVE); URINE RBC 2769 /hpf (0-4); URINE UROBILINOGEN 0.2 mg/dL (0.2-1.0); URINE WBC 12 /hpf (0-5)
[2019-08-15] MEDS ORDERED: TAMSULOSIN HCL 0.4 MG CAP PO ONE (21:35)
== END 2019-08-16 00:50 | disposition home or self-care (01) ==
LOC: JER 15:07
PROC: 3E033NZ Introduction of Analgesics, Hypnotics, Sedatives into Peripheral Vein, Percutaneous Approach (ICD-10-PCS; principal; 2019-08-15)
PROC: 3E0337Z Introduction of Electrolytic and Water Balance Substance into Peripheral Vein, Percutaneous Approach (ICD-10-PCS; 2019-08-15)
DX: N20.0 Calculus of kidney (principal)
CPT/HCPCS: 36415; 74176-TC; 80053; 81003; 84703; 85025; 87086; 99282-25; J0131; J7030

== ENCOUNTER 2021-08-17 09:20 | Emergency (ER) | payer OTHER ==
[2021-08-17 09:30] VITALS: BMI 27.6
[2021-08-17 10:49] LABS: BASO % 0.3 % (0-2.0); EOS % 1.6 % (0-4.5); HEMATOCRIT 34.9 % (32.4-45.2); HEMOGLOBIN 11.7 GM/dL (10.7-15.3); LYMPH % 36.3 % (8-40); MCH 31.2 pg (25.7-33.7); MCHC 33.6 g/dl (32.0-36.0); MEAN CELL VOLUME 92.7 fl (80-96); MEAN PLT VOLUME 8.9 fl (7.5-11.1); MONO % 7.2 % (3.8-10.2); NEUT % 54.6 % (42.8-82.8); PLATELET COUNT 252 10^3/uL (134-434); RBC 3.77 M/mm3 (3.60-5.2); RDW 12.7 % (11.6-15.6); WHITE BLOOD COUNT 5.4 K/mm3 (4.0-10.0)
[2021-08-17 10:51] LABS: INR 0.94 (0.83-1.09); PROTHROMBIN TIME (PATIENT) 11.6 SEC (9.7-13.0)
[2021-08-17 10:54] LABS: ACTIVATED PTT 30.2 SECONDS (25.2-36.5)
[2021-08-17] MEDS ORDERED: ACETAMINOPHEN 500 MG TABLET (FP) PO ONE (10:58)
[2021-08-17] MEDS ORDERED: ACETAMINOPHEN 325 MG TABLET (FP) ONE (11:04)
[2021-08-17 11:09] LABS: CHLORIDE 108 mmol/L (98-107); SODIUM 139 mmol/L (136-145)
[2021-08-17 11:11] LABS: ALBUMIN 3.3 g/dl (3.4-5.0); ANION GAP 5 MMOL/L (8-16); BLOOD UREA NITROGEN 9.4 mg/dL (7-18); CALCIUM 8.6 mg/dL (8.5-10.1); CO2 26 mmol/L (21-32); GLUCOSE,RANDOM 86 mg/dL (74-106); LIPASE 109 U/L (73-393)
[2021-08-17 11:14] LABS: CREATININE 0.6 mg/dL (0.55-1.3); SGOT/AST 10 U/L (15-37); SGPT/ALT 19 U/L (13-61)
[2021-08-17 11:15] LABS: BILIRUBIN,TOTAL 0.6 mg/dL (0.2-1); TOT PROT 6.8 g/dl (6.4-8.2)
[2021-08-17 11:17] LABS: ALK PHOS 70 U/L (45-117)
[2021-08-17 11:30] LABS: EPI CELLS >36 /uL (0-25.1); HYALINE CASTS 2 /uL (0-3.1); PH,URINE 6.5 (5.0-8.0); URINE APPEARANCE CLEAR; URINE BACTERIA 2074 /uL (0-1359); URINE BILIRUBIN NEGATIVE (NEGATIVE); URINE COLOR YELLOW; URINE GLUCOSE (UA) NEGATIVE (NEGATIVE); URINE KETONE NEGATIVE (NEGATIVE); URINE LEUK ESTERASE NEGATIVE (NEGATIVE); URINE NITRITE NEGATIVE (NEGATIVE); URINE PROTEIN NEGATIVE (NEGATIVE); URINE WBC 10 /uL (0-25.8)
[2021-08-17 11:31] LABS: HCG,QUALITATIVE URINE Negative
[2021-08-17 12:58] LABS: URINE RBC 22123.8 /uL (0-23.9)
[2021-08-17 13:26] VITALS: BP 110/68; PULSE 82; TEMP 98.6
== END 2021-08-17 13:26 | disposition home or self-care (01) ==
LOC: JER 09:20
DX: N83.291 Other ovarian cyst, right side (principal)
CPT/HCPCS: 36415; 76830-TC; 80053; 81003; 83690; 84702; 84703; 85025; 85610; 85730; 86850; 86900; 86901; 87086; 99284-25

== ENCOUNTER 2022-01-12 11:03 | Emergency (ER) | payer OTHER ==
[2022-01-12 11:31] VITALS: BP 104/70; PULSE 68; TEMP 98.3; BMI 30.2
[2022-01-12] MEDS ORDERED: SODIUM CHLORIDE 1,000 ML IV STA (11:50)
[2022-01-12] MEDS ORDERED: ACETAMINOPHEN 1000 MG/100 ML BAG IVPB ONE (11:50)
[2022-01-12] MEDS ORDERED: ACETAMINOPHEN INJECTION 100 ML IVPB ONE (11:55)
[2022-01-12] MEDS ORDERED: FAMOTIDINE 20 MG/50 ML IVPB 20 MG/50 ML MG IVPB ONE ×2 (12:17→12:29)
[2022-01-12] MEDS ORDERED: ONDANSETRON 4 MG/2 ML VIAL IVPUSH ONE (12:17)
[2022-01-12 12:26] LABS: BASO % 0.3 % (0-2.0); EOS % 0.8 % (0-4.5); HEMATOCRIT 36.9 % (32.4-45.2); HEMOGLOBIN 12.4 GM/dL (10.7-15.3); LYMPH % 31.6 % (8-40); MCH 30.8 pg (25.7-33.7); MCHC 33.5 g/dl (32.0-36.0); MEAN CELL VOLUME 91.9 fl (80-96); MEAN PLT VOLUME 8.3 fl (7.5-11.1); MONO % 6.1 % (3.8-10.2); NEUT % 61.2 % (42.8-82.8); PLATELET COUNT 320 10^3/uL (134-434); RBC 4.01 M/mm3 (3.60-5.2); RDW 14.3 % (11.6-15.6); WHITE BLOOD COUNT 7.4 K/mm3 (4.0-10.0)
[2022-01-12] MEDS ORDERED: ONDANSETRON 4 MG/2 ML VIAL ONE (12:28)
[2022-01-12 12:41] LABS: EPI CELLS 6 /uL (0-25.1); HYALINE CASTS 0 /uL (0-3.1); PH,URINE 6.5 (5.0-8.0); URINE APPEARANCE CLEAR; URINE BACTERIA 111 /uL (0-1359); URINE BILIRUBIN NEGATIVE (NEGATIVE); URINE COLOR YELLOW; URINE GLUCOSE (UA) NEGATIVE (NEGATIVE); URINE KETONE NEGATIVE (NEGATIVE); URINE LEUK ESTERASE NEGATIVE (NEGATIVE); URINE NITRITE NEGATIVE (NEGATIVE); URINE PROTEIN NEGATIVE (NEGATIVE); URINE RBC 84 /uL (0-23.9); URINE UROBILINOGEN 0.2 mg/dL (0.2-1.0); URINE WBC 3 /uL (0-25.8)
[2022-01-12 12:42] LABS: HCG,QUALITATIVE URINE Negative
[2022-01-12 12:50] LABS: CALCIUM 9.5 mg/dL (8.5-10.1)
[2022-01-12 12:51] LABS: ALBUMIN 3.6 g/dl (3.4-5.0)
[2022-01-12 12:54] LABS: CREATININE 0.7 mg/dL (0.55-1.3)
[2022-01-12 12:56] LABS: BILIRUBIN,TOTAL 0.4 mg/dL (0.2-1); TOT PROT 7.3 g/dl (6.4-8.2)
== END 2022-01-12 15:17 | disposition home or self-care (01) ==
LOC: JER 11:03
PROC: 3E0333Z Introduction of Anti-inflammatory into Peripheral Vein, Percutaneous Approach (ICD-10-PCS; principal; 2022-01-12)
PROC: 3E033GC Introduction of Other Therapeutic Substance into Peripheral Vein, Percutaneous Approach (ICD-10-PCS; 2022-01-12)
PROC: 3E033GC Introduction of Other Therapeutic Substance into Peripheral Vein, Percutaneous Approach (ICD-10-PCS; 2022-01-12)
PROC: 3E0337Z Introduction of Electrolytic and Water Balance Substance into Peripheral Vein, Percutaneous Approach (ICD-10-PCS; 2022-01-12)
DX: R10.9 Unspecified abdominal pain (principal); M54.50 Low back pain, unspecified
CPT/HCPCS: 36415; 74176-TC; 80053; 81003; 83690; 84703; 85025; 87086; 96361; 96374; 96375; 99285-25

== ENCOUNTER 2022-02-17 11:32 | Emergency (ER) | payer OTHER ==
[2022-02-17 11:42] VITALS: BP 108/70; PULSE 73; TEMP 98.1; BMI 29.6
== END 2022-02-17 12:29 | disposition home or self-care (01) ==
LOC: JER 11:32 → JERFT 11:32
DX: R09.89 Other specified symptoms and signs involving the circulatory and respiratory systems (principal)
CPT/HCPCS: 99282-25

== ENCOUNTER 2022-05-22 00:12 | Emergency (ER) | payer OTHER ==
[2022-05-22 00:38] VITALS: BMI 31.5
[2022-05-22] MEDS ORDERED: FAMOTIDINE 20 MG/50 ML IVPB 20 MG/50 ML MG IVPB ONE ×2 (01:09→03:46)
[2022-05-22] MEDS ORDERED: ONDANSETRON 4 MG TABLET PO ONE (01:09)
[2022-05-22] MEDS ORDERED: ACETAMINOPHEN 1000 MG/100 ML BAG IVPB ONE (01:09)
[2022-05-22] MEDS ORDERED: SODIUM CHLORIDE 0.9% 500 ML INFUS.BAG IV ONE (01:10)
[2022-05-22] MEDS ORDERED: ONDANSETRON 4 MG/2 ML VIAL ONE (01:29)
[2022-05-22] MEDS ORDERED: ACETAMINOPHEN INJECTION 100 ML IVPB ONE (01:29)
[2022-05-22 01:32] LABS: BASO % 0.4 % (0-2.0); EOS % 1.1 % (0-4.5); HEMATOCRIT 36.6 % (32.4-45.2); LYMPH % 23.7 % (8-40); MCH 29.9 pg (25.7-33.7); MCHC 32.8 g/dl (32.0-36.0); MEAN CELL VOLUME 91.1 fl (80-96); MEAN PLT VOLUME 8.7 fl (7.5-11.1); MONO % 4.8 % (3.8-10.2); PLATELET COUNT 292 10^3/uL (134-434); RBC 4.01 M/mm3 (3.60-5.2); RDW 13.3 % (11.6-15.6); WHITE BLOOD COUNT 8.5 K/mm3 (4.0-10.0)
[2022-05-22 01:48] LABS: ALBUMIN 3.7 g/dl (3.4-5.0); BLOOD UREA NITROGEN 14.9 mg/dL (7-18)
[2022-05-22 01:51] LABS: CREATININE 0.7 mg/dL (0.55-1.3)
[2022-05-22 01:52] LABS: BILIRUBIN,TOTAL 0.2 mg/dL (0.2-1); TOT PROT 7.4 g/dl (6.4-8.2)
[2022-05-22 02:49] LABS: EPI CELLS 6 /uL (0-25.1); HYALINE CASTS 0 /uL (0-3.1); PH,URINE 6.5 (5.0-8.0); URINE APPEARANCE CLEAR; URINE BACTERIA 290 /uL (0-1359); URINE BILIRUBIN NEGATIVE (NEGATIVE); URINE COLOR YELLOW; URINE GLUCOSE (UA) NEGATIVE (NEGATIVE); URINE KETONE NEGATIVE (NEGATIVE); URINE LEUK ESTERASE NEGATIVE (NEGATIVE); URINE NITRITE NEGATIVE (NEGATIVE); URINE PROTEIN NEGATIVE (NEGATIVE); URINE RBC 57 /uL (0-23.9); URINE UROBILINOGEN 0.2 mg/dL (0.2-1.0); URINE WBC 3 /uL (0-25.8)
[2022-05-22 04:08] LABS: BASO % 0.1 % (0-2.0); EOS % 0.1 % (0-4.5); HEMATOCRIT 31.6 % (32.4-45.2); HEMOGLOBIN 10.7 GM/dL (10.7-15.3); LYMPH % 14.6 % (8-40); MCH 30.3 pg (25.7-33.7); MCHC 33.7 g/dl (32.0-36.0); MEAN PLT VOLUME 7.7 fl (7.5-11.1); MONO % 3.9 % (3.8-10.2); NEUT % 81.3 % (42.8-82.8); PLATELET COUNT 258 10^3/uL (134-434); RBC 3.52 M/mm3 (3.60-5.2); RDW 13.2 % (11.6-15.6); WHITE BLOOD COUNT 9.5 K/mm3 (4.0-10.0)
[2022-05-22] MEDS ORDERED: METHOTREXATE SODIUM/PF 25 MG/ML VIAL IM ONE ×2 (04:17→06:00)
[2022-05-22 05:45] VITALS: TEMP 98.2
[2022-05-22 06:22] VITALS: BP 101/69; PULSE 90
== END 2022-05-22 06:37 | disposition home or self-care (01) ==
LOC: JER 00:12
PROC: 3E0333Z Introduction of Anti-inflammatory into Peripheral Vein, Percutaneous Approach (ICD-10-PCS; principal; 2022-05-22)
PROC: 3E033GC Introduction of Other Therapeutic Substance into Peripheral Vein, Percutaneous Approach (ICD-10-PCS; 2022-05-22)
PROC: 3E023GC Introduction of Other Therapeutic Substance into Muscle, Percutaneous Approach (ICD-10-PCS; 2022-05-22)
DX: O00.00 Abdominal pregnancy without intrauterine pregnancy (principal)
CPT/HCPCS: 36415; 76705-TC; 76801-TC; 80053; 81003; 83690; 84702; 84703; 85025; 86850; 86900; 86901; 87086; 87491; 87591; 93005; 93010; 99285-25; J9260

== ENCOUNTER 2022-05-24 08:55 | Emergency (ER) | payer OTHER ==
[2022-05-24 09:06] VITALS: BP 102/69; PULSE 109; TEMP 99.2; BMI 31.5
== END 2022-05-24 09:40 | disposition home or self-care (01) ==
LOC: JERFT 08:55
DX: O00.101 Right tubal pregnancy without intrauterine pregnancy (principal); R10.30 Lower abdominal pain, unspecified; Z32.01 Encounter for pregnancy test, result positive
CPT/HCPCS: 36415; 84702; 99283-25

== ENCOUNTER 2022-05-26 10:15 | Emergency (ER) | payer OTHER ==
[2022-05-26 10:38] VITALS: BP 94/64; PULSE 66; TEMP 98.6; BMI 31.5
[2022-05-26 11:25] LABS: BASO % 0.5 % (0-2.0); EOS % 1.7 % (0-4.5); HEMATOCRIT 33.6 % (32.4-45.2); HEMOGLOBIN 11.1 GM/dL (10.7-15.3); LYMPH % 29.6 % (8-40); MCH 30.2 pg (25.7-33.7); MEAN CELL VOLUME 91.5 fl (80-96); MEAN PLT VOLUME 8.7 fl (7.5-11.1); MONO % 7.4 % (3.8-10.2); NEUT % 60.8 % (42.8-82.8); PLATELET COUNT 291 10^3/uL (134-434); RBC 3.67 M/mm3 (3.60-5.2); RDW 13.2 % (11.6-15.6); WHITE BLOOD COUNT 4.5 K/mm3 (4.0-10.0)
[2022-05-26 12:19] LABS: ALBUMIN 3.4 g/dl (3.4-5.0); BILIRUBIN,TOTAL 0.3 mg/dL (0.2-1); BLOOD UREA NITROGEN 12.6 mg/dL (7-18); CALCIUM 9.3 mg/dL (8.5-10.1); CREATININE 0.6 mg/dL (0.55-1.3); TOT PROT 7.2 g/dl (6.4-8.2)
[2022-05-26] MEDS ORDERED: METHOTREXATE SODIUM/PF 25 MG/ML VIAL IM ONE (13:17)
== END 2022-05-26 15:21 | disposition home or self-care (01) ==
LOC: JERFT 10:15
PROC: 3E023GC Introduction of Other Therapeutic Substance into Muscle, Percutaneous Approach (ICD-10-PCS; principal; 2022-05-26)
DX: O00.101 Right tubal pregnancy without intrauterine pregnancy (principal); Z3A.00 Weeks of gestation of pregnancy not specified
CPT/HCPCS: 36415; 76817-TC; 80053; 84702; 85025; 99284-25; J9260

== ENCOUNTER 2022-05-29 07:06 | Day surgery (SDC) | payer OTHER ==
[2022-05-29 07:32] VITALS: BMI 30.2
[2022-05-29] MEDS ORDERED: ACETAMINOPHEN 1000 MG/100 ML BAG IVPB ONE (07:58)
[2022-05-29] MEDS ORDERED: ACETAMINOPHEN INJECTION 100 ML IVPB ONE (08:33)
[2022-05-29 08:36] LABS: EPI CELLS 28 /uL (0-25.1); HYALINE CASTS 2 /uL (0-3.1); URINE APPEARANCE CLEAR; URINE BACTERIA 66 /uL (0-1359); URINE BILIRUBIN NEGATIVE (NEGATIVE); URINE COLOR YELLOW; URINE GLUCOSE (UA) NEGATIVE (NEGATIVE); URINE KETONE NEGATIVE (NEGATIVE); URINE LEUK ESTERASE NEGATIVE (NEGATIVE); URINE NITRITE NEGATIVE (NEGATIVE); URINE PROTEIN NEGATIVE (NEGATIVE); URINE RBC 121 /uL (0-23.9); URINE WBC 8 /uL (0-25.8)
[2022-05-29 08:45] LABS: BASO % 0.2 % (0-2.0); EOS % 0.4 % (0-4.5); HEMATOCRIT 32.9 % (32.4-45.2); HEMOGLOBIN 11.1 GM/dL (10.7-15.3); LYMPH % 13.2 % (8-40); MCH 30.5 pg (25.7-33.7); MCHC 33.7 g/dl (32.0-36.0); MEAN CELL VOLUME 90.5 fl (80-96); MEAN PLT VOLUME 8.3 fl (7.5-11.1); MONO % 4.3 % (3.8-10.2); NEUT % 81.9 % (42.8-82.8); PLATELET COUNT 326 10^3/uL (134-434); RBC 3.63 M/mm3 (3.60-5.2); RDW 13.2 % (11.6-15.6); WHITE BLOOD COUNT 9.8 K/mm3 (4.0-10.0)
[2022-05-29 08:56] LABS: INR 1.2 (0.83-1.09); PROTHROMBIN TIME (PATIENT) 13.8 SEC (9.7-13.0)
[2022-05-29 08:58] LABS: ACTIVATED PTT 34.4 SECONDS (25.2-36.5)
[2022-05-29 09:05] LABS: ALBUMIN 3.6 g/dl (3.4-5.0); BLOOD UREA NITROGEN 13.6 mg/dL (7-18); CALCIUM 8.8 mg/dL (8.5-10.1)
[2022-05-29 09:08] LABS: CREATININE 0.6 mg/dL (0.55-1.3)
[2022-05-29 09:10] LABS: BILIRUBIN,TOTAL 0.8 mg/dL (0.2-1); TOT PROT 7.7 g/dl (6.4-8.2)
[2022-05-29] MEDS ORDERED: SODIUM CHLORIDE 0.9% 500 ML INFUS.BAG IV ONE ×3 (09:12→14:35)
[2022-05-29] MEDS ORDERED: morphine CARPU-JECT 2 MG/1 ML DISP.SYRIN IVPUSH ONE (09:13)
[2022-05-29] MEDS ORDERED: BUPIVACAINE HCL/PF 0.25% (2.5MG/ML) 10 ML VIAL ONE (12:27)
[2022-05-29] MEDS ORDERED: KETOROLAC TROMETHAMINE 30 MG/1 ML VIAL ONE ×2 (12:39→14:14)
[2022-05-29] MEDS ORDERED: SUCCINYLCHOLINE CHLORIDE 200 MG/10 ML SYRINGE ONE (12:39)
[2022-05-29] MEDS ORDERED: DEXAMETHASONE SOD PHOSPHATE 4 MG/1 ML VIAL ONE (12:39)
[2022-05-29] MEDS ORDERED: LIDOCAINE HCL 2% 100 MG/5 ML DISP.SYRIN ONE (12:39)
[2022-05-29] MEDS ORDERED: PROPOFOL 20 ML ONE ×2 (12:39)
[2022-05-29] MEDS ORDERED: ROCURONIUM BROMIDE 50 MG/5 ML SYRINGE ONE (12:40)
[2022-05-29] MEDS ORDERED: MIDAZOLAM HCL 2 MG/2 ML SINGLE DOSE VIAL ONE (12:40)
[2022-05-29] MEDS ORDERED: ceFAZolin SODIUM 1 GM VIAL IVPB ONE (13:10)
[2022-05-29] MEDS ORDERED: BUPIVACAINE HCL/PF 0.25% (2.5MG/ML) 10 ML VIAL IJ ONE (13:27)
[2022-05-29] MEDS ORDERED: ONDANSETRON 4 MG/2 ML VIAL IVPUSH PRN (14:32)
[2022-05-29] MEDS ORDERED: PROMETHAZINE HCL 25 MG/1 ML VIAL IVPUSH PRN (14:32)
[2022-05-29] MEDS ORDERED: oxyCODONE HCL 5 MG TABLET PO PRN ×2 (14:32)
[2022-05-29] MEDS ORDERED: ACETAMINOPHEN 325 MG TABLET (FP) PO PRN (14:33)
[2022-05-29] MEDS ORDERED: FENTANYL CITRATE/PF 50 MCG/ML VIAL ONE ×3 (14:41→15:00)
[2022-05-29] MEDS: LACTATED RINGERS SOLUTION 1,000 ML IV SCH ×2 (15:14→15:30)
[2022-05-29] MEDS: IBUPROFEN 600 MG TABLET (FP) PO PRN (20:41)
[2022-05-30] MEDS: IBUPROFEN 600 MG TABLET (FP) PO PRN (01:45)
[2022-05-30 08:39] LABS: EOS % 0.2 % (0-4.5); HEMATOCRIT 27.2 % (32.4-45.2); HEMOGLOBIN 9.3 GM/dL (10.7-15.3); LYMPH % 13.8 % (8-40); MCHC 34.2 g/dl (32.0-36.0); MEAN CELL VOLUME 90.5 fl (80-96); MEAN PLT VOLUME 8.6 fl (7.5-11.1); MONO % 5.4 % (3.8-10.2); NEUT % 80.6 % (42.8-82.8); PLATELET COUNT 294 10^3/uL (134-434); RDW 13.4 % (11.6-15.6); WHITE BLOOD COUNT 9.6 K/mm3 (4.0-10.0)
[2022-05-30 10:05] VITALS: BP 90/58; PULSE 98; TEMP 98.3
== END 2022-05-30 12:22 | disposition home or self-care (01) ==
LOC: JER 07:06 → UNDOADMIN 11:15 → JASUSAT 11:15 → JERBED 11:15 → J3W 14:44 → JASUSAT 05-30 12:22
PROVIDERS: ATTEND Student in an Organized Health Care Education/Training Program
PROC: 0UDB7ZX Extraction of Endometrium, Via Natural or Artificial Opening, Diagnostic (ICD-10-PCS; 2022-05-29)
PROC: 10T24ZZ Resection of Products of Conception, Ectopic, Percutaneous Endoscopic Approach (ICD-10-PCS; principal; 2022-05-29 12:15)
PROC: 0UT54ZZ Resection of Right Fallopian Tube, Percutaneous Endoscopic Approach (ICD-10-PCS; 2022-05-29 12:15)
DX: O00.101 Right tubal pregnancy without intrauterine pregnancy (principal); N83.11 Corpus luteum cyst of right ovary
CPT/HCPCS: 36415; 76817-TC; 80053; 81003; 84702; 85025; 85610; 85730; 86850; 86900; 86901; 87086; 88305-TC; 94760; 99285-25; C9803-CS; U0003; U0005

== ENCOUNTER 2022-07-24 13:37 | Emergency (ER) | payer OTHER ==
[2022-07-24 13:41] VITALS: RESP 18; TEMP 98.2; BMI 31.7
[2022-07-24] MEDS ORDERED: SODIUM CHLORIDE 1,000 ML IV STA (13:56)
[2022-07-24] MEDS ORDERED: ACETAMINOPHEN 1000 MG/100 ML BAG IVPB ONE (13:56)
[2022-07-24] MEDS ORDERED: METOCLOPRAMIDE HCL INJECTION 10 MG/2 ML VIAL IVPUSH ONE (13:57)
[2022-07-24] MEDS ORDERED: METOCLOPRAMIDE HCL INJECTION 10 MG/2 ML VIAL ONE (14:17)
[2022-07-24] MEDS ORDERED: ACETAMINOPHEN INJECTION 100 ML IVPB ONE (14:17)
[2022-07-24 15:11] LABS: BASO % 0.2 % (0-2.0); EOS % 0.3 % (0-4.5); HEMATOCRIT 35.8 % (32.4-45.2); HEMOGLOBIN 11.9 GM/dL (10.7-15.3); LYMPH % 19.8 % (8-40); MCH 30.4 pg (25.7-33.7); MCHC 33.2 g/dl (32.0-36.0); MEAN CELL VOLUME 91.7 fl (80-96); MEAN PLT VOLUME 8.7 fl (7.5-11.1); MONO % 5.2 % (3.8-10.2); NEUT % 74.5 % (42.8-82.8); PLATELET COUNT 292 10^3/uL (134-434); RDW 13.6 % (11.6-15.6)
[2022-07-24 15:15] LABS: HCG,QUALITATIVE URINE Negative
[2022-07-24 15:17] LABS: EPI CELLS 29 /uL (0-25.1); HYALINE CASTS 1 /uL (0-3.1); URINE APPEARANCE CLEAR; URINE BACTERIA 2161 /uL (0-1359); URINE BILIRUBIN NEGATIVE (NEGATIVE); URINE COLOR YELLOW; URINE GLUCOSE (UA) NEGATIVE (NEGATIVE); URINE KETONE NEGATIVE (NEGATIVE); URINE LEUK ESTERASE NEGATIVE (NEGATIVE); URINE NITRITE NEGATIVE (NEGATIVE); URINE PROTEIN NEGATIVE (NEGATIVE); URINE RBC 59 /uL (0-23.9); URINE UROBILINOGEN 0.2 mg/dL (0.2-1.0); URINE WBC 6 /uL (0-25.8)
[2022-07-24 15:36] LABS: ALBUMIN 3.4 g/dl (3.4-5.0); BLOOD UREA NITROGEN 10.6 mg/dL (7-18); CALCIUM 8.8 mg/dL (8.5-10.1)
[2022-07-24 15:39] LABS: CREATININE 0.6 mg/dL (0.55-1.3)
[2022-07-24 15:41] LABS: TOT PROT 6.8 g/dl (6.4-8.2)
[2022-07-24 15:43] LABS: BILIRUBIN,TOTAL 0.2 mg/dL (0.2-1)
[2022-07-24 16:02] VITALS: BP 106/72; PULSE 75
== END 2022-07-24 16:03 | disposition home or self-care (01) ==
LOC: JER 13:37
PROC: 3E0333Z Introduction of Anti-inflammatory into Peripheral Vein, Percutaneous Approach (ICD-10-PCS; principal; 2022-07-24)
PROC: 3E033GC Introduction of Other Therapeutic Substance into Peripheral Vein, Percutaneous Approach (ICD-10-PCS; 2022-07-24)
PROC: 3E033GC Introduction of Other Therapeutic Substance into Peripheral Vein, Percutaneous Approach (ICD-10-PCS; 2022-07-24)
PROC: 3E0337Z Introduction of Electrolytic and Water Balance Substance into Peripheral Vein, Percutaneous Approach (ICD-10-PCS; 2022-07-24)
DX: R11.0 Nausea (principal); R42 Dizziness and giddiness; G44.89 Other headache syndrome
CPT/HCPCS: 36415; 80053; 81003; 83690; 84703; 85025; 87086; 99284-25

== ENCOUNTER 2023-01-19 10:39 | Emergency (ER) | payer OTHER ==
[2023-01-19 11:00] VITALS: BMI 30.8
[2023-01-19 12:19] LABS: EPI CELLS 13 /uL (0-25.1); HYALINE CASTS 1 /uL (0-3.1); PH,URINE 6.5 (5.0-8.0); URINE APPEARANCE CLEAR; URINE BACTERIA 383 /uL (0-1359); URINE BILIRUBIN NEGATIVE (NEGATIVE); URINE COLOR YELLOW; URINE GLUCOSE (UA) NEGATIVE (NEGATIVE); URINE KETONE NEGATIVE (NEGATIVE); URINE LEUK ESTERASE NEGATIVE (NEGATIVE); URINE NITRITE NEGATIVE (NEGATIVE); URINE PROTEIN NEGATIVE (NEGATIVE); URINE RBC 118 /uL (0-23.9); URINE WBC 16 /uL (0-25.8)
[2023-01-19] MEDS ORDERED: ACETAMINOPHEN 1000 MG/100 ML BAG IVPB ONE (12:40)
[2023-01-19] MEDS ORDERED: SODIUM CHLORIDE 0.9% 500 ML INFUS.BAG IV ONE (12:40)
[2023-01-19] MEDS ORDERED: ACETAMINOPHEN INJECTION 100 ML IVPB ONE (12:51)
[2023-01-19 13:15] LABS: BASO % 0.3 % (0-2.0); EOS % 1.2 % (0-4.5); HEMOGLOBIN 11.9 GM/dL (10.7-15.3); LYMPH % 39.2 % (8-40); MCH 29.6 pg (25.7-33.7); MCHC 33.2 g/dl (32.0-36.0); MEAN CELL VOLUME 89.1 fl (80-96); MEAN PLT VOLUME 9.1 fl (7.5-11.1); MONO % 6.7 % (3.8-10.2); NEUT % 52.6 % (42.8-82.8); PLATELET COUNT 307 10^3/uL (134-434); RBC 4.04 M/mm3 (3.60-5.2); RDW 13.7 % (11.6-15.6); WHITE BLOOD COUNT 5.6 K/mm3 (4.0-10.0)
[2023-01-19 14:10] LABS: CALCIUM 9.2 mg/dL (8.5-10.1)
[2023-01-19 14:14] LABS: CREATININE 0.7 mg/dL (0.55-1.3)
[2023-01-19 19:07] VITALS: BP 120/85; PULSE 85; RESP 18; TEMP 98.1
== END 2023-01-19 18:45 | disposition home or self-care (01) ==
LOC: JER 10:39
PROC: 3E0333Z Introduction of Anti-inflammatory into Peripheral Vein, Percutaneous Approach (ICD-10-PCS; principal; 2023-01-19)
DX: R10.2 Pelvic and perineal pain (principal)
CPT/HCPCS: 36415; 74176-TC; 80048; 81003; 84703; 85025; 87086; 93005; 93010; 99285-25

== ENCOUNTER 2023-06-05 18:49 | Emergency (ER) | payer OTHER ==
[2023-06-05 19:04] VITALS: BP 100/62; PULSE 87; RESP 18; TEMP 98.9; BMI 37.8
[2023-06-05] MEDS ORDERED: ONDANSETRON 4 MG/2 ML VIAL IVPUSH ONE (20:31)
[2023-06-05] MEDS ORDERED: SODIUM CHLORIDE 0.9% 500 ML INFUS.BAG IV ONE (20:36)
[2023-06-05] MEDS ORDERED: FAMOTIDINE 20 MG/50 ML IVPB 20 MG/50 ML MG IVPB ONE ×2 (20:36→20:50)
[2023-06-05] MEDS ORDERED: ONDANSETRON 4 MG/2 ML VIAL ONE (20:50)
[2023-06-05 21:05] LABS: BASO % 0.4 % (0-2.0); EOS % 1.7 % (0-4.5); HEMATOCRIT 34.9 % (32.4-45.2); HEMOGLOBIN 11.5 GM/dL (10.7-15.3); LYMPH % 39.9 % (8-40); MCH 30.1 pg (25.7-33.7); MEAN CELL VOLUME 91.1 fl (80-96); MEAN PLT VOLUME 9.1 fl (7.5-11.1); MONO % 5.8 % (3.8-10.2); NEUT % 52.2 % (42.8-82.8); PLATELET COUNT 308 10^3/uL (134-434); RBC 3.83 M/mm3 (3.60-5.2); RDW 13.5 % (11.6-15.6); WHITE BLOOD COUNT 7.3 K/mm3 (4.0-10.0)
[2023-06-05 21:09] LABS: EPI CELLS >36 /uL (0-25.1); HYALINE CASTS 1 /uL (0-3.1); URINE APPEARANCE CLEAR; URINE BACTERIA 314 /uL (0-1359); URINE BILIRUBIN NEGATIVE (NEGATIVE); URINE COLOR YELLOW; URINE GLUCOSE (UA) NEGATIVE (NEGATIVE); URINE KETONE NEGATIVE (NEGATIVE); URINE LEUK ESTERASE NEGATIVE (NEGATIVE); URINE NITRITE NEGATIVE (NEGATIVE); URINE PROTEIN NEGATIVE (NEGATIVE); URINE RBC 109 /uL (0-23.9); URINE UROBILINOGEN 0.2 mg/dL (0.2-1.0); URINE WBC 13 /uL (0-25.8)
[2023-06-05 21:18] LABS: HCG,QUALITATIVE URINE Negative
[2023-06-05 21:33] LABS: POTASSIUM 4.1 mmol/L (3.5-5.1)
[2023-06-05 21:34] LABS: CALCIUM 9.3 mg/dL (8.5-10.1)
[2023-06-05 21:35] LABS: ALBUMIN 3.4 g/dl (3.4-5.0); BLOOD UREA NITROGEN 11.9 mg/dL (7-18)
[2023-06-05 21:37] LABS: CREATININE 0.7 mg/dL (0.55-1.3)
[2023-06-05 21:40] LABS: BILIRUBIN,TOTAL 0.1 mg/dL (0.2-1); TOT PROT 7.3 g/dl (6.4-8.2)
[2023-06-05] MEDS ORDERED: KETOROLAC TROMETHAMINE 30 MG/1 ML VIAL IVPUSH ONE (21:53)
[2023-06-05] MEDS ORDERED: MAGNESIUM HYDROX 2400MG/30ML ORAL SUSPENSION 30 ML CUP PO ONE (21:54)
[2023-06-05] MEDS ORDERED: CEFTRIAXONE 1,000 MG in DEXTROSE 5%-WATER - 50 ML IVPB ONE (21:55)
[2023-06-05] MEDS ORDERED: KETOROLAC TROMETHAMINE 30 MG/1 ML VIAL ONE (22:08)
[2023-06-05] MEDS ORDERED: MAGNESIUM HYDROX 2400MG/30ML ORAL SUSPENSION 30 ML CUP ONE (22:10)
== END 2023-06-06 00:14 | disposition home or self-care (01) ==
LOC: JER 18:49
PROC: 3E033GC Introduction of Other Therapeutic Substance into Peripheral Vein, Percutaneous Approach (ICD-10-PCS; principal; 2023-06-05)
PROC: 3E033GC Introduction of Other Therapeutic Substance into Peripheral Vein, Percutaneous Approach (ICD-10-PCS; 2023-06-05)
PROC: 3E033GC Introduction of Other Therapeutic Substance into Peripheral Vein, Percutaneous Approach (ICD-10-PCS; 2023-06-05)
DX: R10.84 Generalized abdominal pain (principal); K52.9 Noninfective gastroenteritis and colitis, unspecified
CPT/HCPCS: 36415; 76830-TC; 80053; 81003; 84703; 85025; 87086; 99284-25

== ENCOUNTER 2024-04-10 10:31 | Emergency (ER) | payer OTHER ==
[2024-04-10 10:35] VITALS: BP 105/73; PULSE 86; RESP 20; TEMP 98.2; BMI 34.9
[2024-04-10] MEDS ORDERED: METOCLOPRAMIDE HCL INJECTION 10 MG/2 ML VIAL ONE (12:07)
[2024-04-10] MEDS ORDERED: ACETAMINOPHEN INJECTION 100 ML IVPB ONE (12:08)
[2024-04-10] MEDS: ACETAMINOPHEN 1000 MG/100 ML BAG IVPB ONE (12:50)
[2024-04-10] MEDS: SODIUM CHLORIDE 0.9% 500 ML INFUS.BAG IV ONE (12:50)
[2024-04-10] MEDS: METOCLOPRAMIDE HCL INJECTION 10 MG/2 ML VIAL IVPUSH ONE (12:51)
[2024-04-10 14:28] LABS: EPI CELLS 17 /uL (0-25.1); HYALINE CASTS 0 /uL (0-3.1); URINE APPEARANCE CLEAR; URINE BACTERIA 626 /uL (0-1359); URINE BILIRUBIN NEGATIVE (NEGATIVE); URINE COLOR YELLOW; URINE GLUCOSE (UA) NEGATIVE (NEGATIVE); URINE KETONE NEGATIVE (NEGATIVE); URINE LEUK ESTERASE NEGATIVE (NEGATIVE); URINE NITRITE NEGATIVE (NEGATIVE); URINE PROTEIN NEGATIVE (NEGATIVE); URINE RBC 21 /uL (0-23.9); URINE UROBILINOGEN 0.2 mg/dL (0.2-1.0); URINE WBC 4 /uL (0-25.8)
[2024-04-10 14:32] LABS: HCG,QUALITATIVE URINE Negative
== END 2024-04-10 14:43 | disposition home or self-care (01) ==
LOC: JER 10:31
PROC: 3E033NZ Introduction of Analgesics, Hypnotics, Sedatives into Peripheral Vein, Percutaneous Approach (ICD-10-PCS; principal; 2024-04-10)
PROC: 3E033GC Introduction of Other Therapeutic Substance into Peripheral Vein, Percutaneous Approach (ICD-10-PCS; 2024-04-10)
PROC: 3E033GC Introduction of Other Therapeutic Substance into Peripheral Vein, Percutaneous Approach (ICD-10-PCS; 2024-04-10)
DX: R51.9 Headache, unspecified (principal); R11.2 Nausea with vomiting, unspecified; R42 Dizziness and giddiness; H53.8 Other visual disturbances
CPT/HCPCS: 70450-TC; 81003; 84703; 87086; 93005; 93010; 96374; 96375; 99285-25; J0131

== ENCOUNTER 2024-07-30 12:31 | Emergency (ER) | payer OTHER ==
[2024-07-30 12:52] VITALS: BP 114/70; PULSE 87; RESP 17; TEMP 98.1; BMI 34.4
[2024-07-30 13:52] LABS: EPI CELLS 29 /uL (0-25.1); HCG,QUALITATIVE URINE Negative; HYALINE CASTS 0 /uL (0-3.1); URINE APPEARANCE CLEAR; URINE BACTERIA 1670 /uL (0-1359); URINE BILIRUBIN NEGATIVE (NEGATIVE); URINE COLOR YELLOW; URINE GLUCOSE (UA) NEGATIVE (NEGATIVE); URINE KETONE NEGATIVE (NEGATIVE); URINE LEUK ESTERASE NEGATIVE (NEGATIVE); URINE NITRITE NEGATIVE (NEGATIVE); URINE PROTEIN NEGATIVE (NEGATIVE); URINE RBC 145 /uL (0-23.9); URINE UROBILINOGEN 0.2 mg/dL (0.2-1.0); URINE WBC 11 /uL (0-25.8)
[2024-07-30] MEDS ORDERED: ACETAMINOPHEN INJECTION 100 ML ONE (14:04)
[2024-07-30] MEDS: SODIUM CHLORIDE 0.9% 500 ML INFUS.BAG IV ONE (14:11)
[2024-07-30] MEDS: ACETAMINOPHEN 1000 MG/100 ML BAG IVPB ONE (14:11)
[2024-07-30 14:46] LABS: POTASSIUM 4.1 mmol/L (3.5-5.1)
[2024-07-30 14:48] LABS: ALBUMIN 3.8 g/dl (3.4-5.0); CALCIUM 9.6 mg/dL (8.5-10.1)
[2024-07-30 14:51] LABS: CREATININE 0.7 mg/dL (0.55-1.3)
[2024-07-30 14:53] LABS: BILIRUBIN,TOTAL 0.3 mg/dL (0.2-1); TOT PROT 7.8 g/dl (6.4-8.2)
[2024-07-30] MEDS ORDERED: SULFAMETHOXAZOLE/TRIMETHOPRIM 800MG/160MG D.S. TABLET ONE (15:16)
[2024-07-30] MEDS: SULFAMETHOXAZOLE/TRIMETHOPRIM 800MG/160MG D.S. TABLET PO ONE (15:35)
[2024-07-30 15:41] LABS: HIV INTERPRETATION NEGATIVE (NEGATIVE)
[2024-07-30 16:29] LABS: BASO % 0.2 % (0-2.0); EOS % 0.9 % (0-4.5); HEMATOCRIT 35.1 % (32.4-45.2); HEMOGLOBIN 11.5 GM/dL (10.7-15.3); LYMPH % 27.6 % (8-40); MCH 28.9 pg (25.7-33.7); MCHC 32.8 g/dl (32.0-36.0); MEAN CELL VOLUME 88.2 fl (80-96); MEAN PLT VOLUME 9.3 fl (7.5-11.1); MONO % 6.2 % (3.8-10.2); NEUT % 65.1 % (42.8-82.8); PLATELET COUNT 275 10^3/uL (134-434); RBC 3.97 M/mm3 (3.60-5.2); WHITE BLOOD COUNT 7.1 K/mm3 (4.0-10.0)
== END 2024-07-30 17:10 | disposition home or self-care (01) ==
LOC: JER 12:31 → JERFT 12:31 → JER 17:10
PROC: 3E033NZ Introduction of Analgesics, Hypnotics, Sedatives into Peripheral Vein, Percutaneous Approach (ICD-10-PCS; principal; 2024-07-30)
DX: R30.0 Dysuria (principal); R10.9 Unspecified abdominal pain; N20.0 Calculus of kidney
CPT/HCPCS: 36415; 76775-TC; 80053; 81003; 84703; 85025; 86803; 87086; 87389; 96374; 99284-25; J0131

== ENCOUNTER 2024-09-03 11:02 | Emergency (ER) | payer OTHER ==
[2024-09-03 11:27] VITALS: BP 114/75; PULSE 104; RESP 18; TEMP 98.8; BMI 30.2
[2024-09-03] MEDS ORDERED: ACETAMINOPHEN 325 MG TABLET (FP) ONE (12:14)
[2024-09-03] MEDS ORDERED: IBUPROFEN 400 MG TABLET (FP) PO ONE (12:15)
[2024-09-03] MEDS: IBUPROFEN 400 MG TABLET (FP) PO ONE (12:33)
[2024-09-03] MEDS: ACETAMINOPHEN 325 MG TABLET (FP) PO ONE (12:35)
[2024-09-03] MEDS: KETOROLAC TROMETHAMINE 15 MG/ML VIAL IVPUSH ONE (12:43)
[2024-09-03 13:02] LABS: THROAT:GRP A STREP NOT DETECTED (NOTDETECTED)
== END 2024-09-03 14:01 | disposition home or self-care (01) ==
LOC: JER 11:02
DX: R00.2 Palpitations (principal); J06.9 Acute upper respiratory infection, unspecified; J02.9 Acute pharyngitis, unspecified; R05.9 Cough, unspecified; F41.9 Anxiety disorder, unspecified; Z20.822 Contact with and (suspected) exposure to COVID-19
CPT/HCPCS: 0241U-QW; 87651; 93005; 93010; 99284-25

== ENCOUNTER 2024-09-08 08:47 | Emergency (ER) | payer OTHER ==
[2024-09-08 08:59] VITALS: BP 103/70; PULSE 91; RESP 20; TEMP 98.5; BMI 34.5
[2024-09-08] MEDS ORDERED: METOCLOPRAMIDE HCL INJECTION 10 MG/2 ML VIAL ONE (10:14)
[2024-09-08] MEDS ORDERED: ACETAMINOPHEN 500 MG TABLET (FP) ONE (10:32)
[2024-09-08] MEDS: ACETAMINOPHEN 500 MG TABLET (FP) PO ONE (10:35)
[2024-09-08] MEDS: METOCLOPRAMIDE HCL INJECTION 10 MG/2 ML VIAL IM ONE (10:40)
[2024-09-08 10:53] LABS: HCG,QUALITATIVE URINE Negative
[2024-09-08 10:54] LABS: EPI CELLS 10 /uL (0-25.1); HYALINE CASTS 1 /uL (0-3.1); URINE APPEARANCE CLEAR; URINE BACTERIA 528 /uL (0-1359); URINE BILIRUBIN NEGATIVE (NEGATIVE); URINE COLOR ORANGE; URINE GLUCOSE (UA) NEGATIVE (NEGATIVE); URINE KETONE TRACE (NEGATIVE); URINE LEUK ESTERASE TRACE (NEGATIVE); URINE NITRITE NEGATIVE (NEGATIVE); URINE PROTEIN TRACE (NEGATIVE); URINE RBC 2702 /uL (0-23.9); URINE UROBILINOGEN 0.2 mg/dL (0.2-1.0); URINE WBC 22 /uL (0-25.8)
== END 2024-09-08 14:00 | disposition left against medical advice (07) ==
LOC: JER 08:47
PROC: 3E023GC Introduction of Other Therapeutic Substance into Muscle, Percutaneous Approach (ICD-10-PCS; principal; 2024-09-08)
DX: R51.9 Headache, unspecified (principal)
CPT/HCPCS: 81003; 84703; 99284-25